=== PATIENT | male | born 1950 | race African-American/Black ===

== ENCOUNTER 2017-07-06 19:34 | Inpatient (IN) | payer MEDICARE, OTHER ==
[2017-07-06] MEDS: ALBUTEROL 0.083% (NEB) 2.5 MG/3 ML AMP HHN (21:06)
[2017-07-06] MEDS: IPRATROPIUM (NEB) 0.5 MG/2.5 ML AMP HHN (21:06)
[2017-07-06 21:17] LABS: ADD MAN DIFF? NO
[2017-07-06 21:20] LABS: AADO2 Arterial 139.5 mmHg (7.0-24.0); Arterial Base Excess 1.8 mmol/L (-3.0-3); Arterial Blood Gas Oxygen Sat 98.3 mmHG (95.0-98.0); Arterial COHb 0 % (0.0-3.0); Arterial HCO3 27.2 mmol/L (22.0-26.0); Arterial MetHb 0.3 % (0.0-1.5); Arterial Total Hemglobin 15.8 g/dl (12.0-18.0); MODE MASK - SIMPLE; Site Right Brachial
[2017-07-06] MEDS: CEFEPIME 2GM/50 ML (PMX) 50 ML IVPB (21:22)
[2017-07-06] MEDS: SODIUM CHLORIDE 0.9% 1L BAG IV* (21:23)
[2017-07-06 21:31] LABS: WHITE BLOOD COUNT 7.8 10^3/ul (4.8-10.8)
[2017-07-06 21:31] LABS: ABNORMAL IP MESSAGE 1; BASOPHIL # 0.1 10^3/ul (0.0-0.1); BASOPHILS % 0.6 % (0.0-2.0); EOSINOPHILS # 0.1 10^3/ul (0.0-0.5); EOSINOPHILS % 1.7 % (0.0-7.0); HEMOGLOBIN 15.4 g/dl (14.0-18.0); LYMPHOCYTES # 0.4 10^3/ul (0.8-2.9); LYMPHOCYTES % 5.1 % (15.0-51.0); MEAN CORPUSCULAR HEMOGLOBIN 30.6 pg (29.0-33.0); MEAN CORPUSCULAR HGB CONC 33.5 g/dl (32.0-37.0); MEAN CORPUSCULAR VOLUME 91.3 fl (82.0-101.0); MEAN PLATELET VOLUME 8.5 fl (7.4-10.4); MONOCYTE # 1.2 10^3/ul (0.3-0.9); NEUTROPHILS % 77.2 % (39.0-77.0); PLATELET COUNT 286 10^3/UL (140-415); POSITIVE DIFF @See below; RED BLOOD COUNT 5.04 10^6/ul (4.70-6.10); RED CELL DISTRIBUTION WIDTH 12.8 % (11.5-14.5)
[2017-07-06 21:55] LABS: INR 0.98; PROTIME 13.1 Sec (11.9-14.9)
[2017-07-06 21:56] LABS: PARTIAL THROMBOPLASTIN TIME 26.7 Sec (25.0-35.0)
[2017-07-06 22:03] LABS: LACTIC ACID 1.4 mmol/L (0.5-2.0)
[2017-07-06 22:04] LABS: ALANINE AMINOTRANSFERASE 98 IU/L (13-69); ALBUMIN 4.7 g/dl (3.3-4.9); ALBUMIN/GLOBULIN RATIO 1.34; ALKALINE PHOSPHATASE 85 IU/L (42-121); ANION GAP 18 (8-16); ASPARTATE AMINO TRANSFERASE 70 IU/L (15-46); BILIRUBIN,INDIRECT 0.2 mg/dl (0-1.1); BILIRUBIN,TOTAL 0.2 mg/dl (0.2-1.3); BLOOD UREA NITROGEN 9 mg/dl (7-20); CALCIUM 8.9 mg/dl (8.4-10.2); CARBON DIOXIDE 26 mmol/L (21-31); CHLORIDE 98 mmol/L (97-110); CREATININE 0.88 mg/dl (0.61-1.24); GLUCOSE 144 mg/dl (70-220); POTASSIUM 4.3 mmol/L (3.5-5.1); SODIUM 138 mmol/L (135-144); TOTAL PROTEIN 8.2 g/dl (6.1-8.1)
[2017-07-06 22:24] LABS: TROPONIN-I < 0.012 ng/ml (0.00-0.12)
[2017-07-06] MEDS: METHYLPREDNISOLONE 125 MG INJ IV (23:11)
[2017-07-06] MEDS: KETOROLAC 30 MG INJ IV ×2 (23:12)
[2017-07-06 23:17] LABS: LACTIC ACID 1.5 mmol/L (0.5-2.0)
[2017-07-07] MEDS: AZITHROMYCIN 250 MG TAB PO (00:50)
[2017-07-07] MEDS: ACETAMINOPHEN 325 MG TAB PO (00:50)
[2017-07-07] MEDS ORDERED: ONDANSETRON 4 MG INJ IV ×2 (01:00→04:30)
[2017-07-07] MEDS ORDERED: ACETAMINOPHEN 325 MG TAB PO ×2 (01:00→04:30)
[2017-07-07 01:19] LABS: ADD UMIC NO; UR ASCORBIC ACID 40 mg/dL (NEGATIVE); UR BILIRUBIN (Dip) NEGATIVE (NEGATIVE); UR BLOOD (Dip) NEGATIVE (NEGATIVE); UR CLARITY CLEAR (CLEAR); UR COLOR YELLOW (YELLOW); UR GLUCOSE (Dip) NEGATIVE (NEGATIVE); UR KETONES (Dip) NEGATIVE (NEGATIVE); UR LEUKOCYTE ESTERASE (Dip) NEGATIVE Leu/ul (NEGATIVE); UR NITRITE (Dip) NEGATIVE (NEGATIVE); UR SPECIFIC GRAVITY (Dip) 1.024 (1.003-1.030); UR TOTAL PROTEIN (Dip) NEGATIVE (NEGATIVE); UR UROBILINOGEN (Dip) 1+ mg/dL (NEGATIVE)
[2017-07-07 01:34] LABS: LACTIC ACID 1.4 mmol/L (0.5-2.0)
[2017-07-07] MEDS: ALBUTEROL 0.083% (NEB) 2.5 MG/3 ML AMP HHN (02:16)
[2017-07-07] MEDS: SOD CHLORIDE 0.9% 1,000 ML IV ×3 (04:04→22:27)
[2017-07-07] MEDS ORDERED: morphine 2 MG INJ IV (04:30)
[2017-07-07] MEDS ORDERED: NACL 0.9% 3 ML SYG IV (04:30)
[2017-07-07] MEDS: HEPARIN 5,000 UNIT/0.5 ML VIAL SC ×2 (08:42→22:36)
[2017-07-07] MEDS: METHYLPREDNISOLONE 125 MG INJ IV (08:45)
[2017-07-07] MEDS: SALMETEROL/FLUTICASONE 250/50 INHA INH ×2 (09:44→21:00)
[2017-07-07] MEDS: LEVOFLOXACIN 500MG/D5W (PMX) 100 ML IVPB (09:54)
[2017-07-07 10:01] LABS: HAAIG REFLEX REFLEX FILED
[2017-07-07] MEDS: ALBUTEROL/IPRATROPIUM (NEB) 3 ML AMP HHN ×4 (13:04→21:08)
[2017-07-07 18:10] LABS: HEPATITIS B SURFACE ANTIGEN NEGATIVE (NEGATIVE)
[2017-07-07 18:28] LABS: HEPATITIS B CORE ANTIBODY REACTIVE (NEGATIVE)
[2017-07-07 18:29] LABS: HEPATITIS C VIRAL ANTIBODY REACTIVE (NEGATIVE)
[2017-07-07] MEDS: METHYLPREDNISOLONE 40 MG INJ IV (22:26)
[2017-07-07] MEDS: MONTELUKAST 10 MG TAB PO (22:26)
[2017-07-07] MEDS: INFLUENZA VIRUS VACCINE 0.5 ML (DISPENSING) IM* (23:00)
[2017-07-08] MEDS: ALBUTEROL/IPRATROPIUM (NEB) 3 ML AMP HHN ×6 (00:08→20:11)
[2017-07-08] MEDS: SALMETEROL/FLUTICASONE 250/50 INHA INH ×3 (01:18→22:36)
[2017-07-08 06:22] LABS: ADD MAN DIFF? NO
[2017-07-08 06:32] LABS: WHITE BLOOD COUNT 10.4 10^3/ul (4.8-10.8)
[2017-07-08 06:32] LABS: BASOPHILS % 0.1 % (0.0-2.0); HEMATOCRIT 40.5 % (42.0-52.0); HEMOGLOBIN 13.6 g/dl (14.0-18.0); LYMPHOCYTES # 1.1 10^3/ul (0.8-2.9); LYMPHOCYTES % 10.3 % (15.0-51.0); MEAN CORPUSCULAR HEMOGLOBIN 31.3 pg (29.0-33.0); MEAN CORPUSCULAR HGB CONC 33.6 g/dl (32.0-37.0); MEAN CORPUSCULAR VOLUME 93.1 fl (82.0-101.0); MEAN PLATELET VOLUME 8.7 fl (7.4-10.4); MONOCYTE # 1.2 10^3/ul (0.3-0.9); MONOCYTES % 11.6 % (0.0-11.0); NEUTROPHIL # 8.1 10^3/ul (1.6-7.5); NEUTROPHILS % 77.6 % (39.0-77.0); PLATELET COUNT 254 10^3/UL (140-415); RED BLOOD COUNT 4.35 10^6/ul (4.70-6.10); RED CELL DISTRIBUTION WIDTH 13.2 % (11.5-14.5)
[2017-07-08 06:50] LABS: ALANINE AMINOTRANSFERASE 58 IU/L (13-69); ALBUMIN 3.3 g/dl (3.3-4.9); ALBUMIN/GLOBULIN RATIO 1.03; ALKALINE PHOSPHATASE 70 IU/L (42-121); ANION GAP 15 (8-16); ASPARTATE AMINO TRANSFERASE 40 IU/L (15-46); BLOOD UREA NITROGEN 16 mg/dl (7-20); CALCIUM 8.3 mg/dl (8.4-10.2); CARBON DIOXIDE 27 mmol/L (21-31); CHLORIDE 105 mmol/L (97-110); CREATININE 0.89 mg/dl (0.61-1.24); GLUCOSE 166 mg/dl (70-220); MAGNESIUM 1.8 mg/dl (1.7-2.5); PHOSPHORUS 3.6 mg/dl (2.5-4.9); POTASSIUM 4.7 mmol/L (3.5-5.1); SODIUM 142 mmol/L (135-144); TOTAL PROTEIN 6.5 g/dl (6.1-8.1)
[2017-07-08] MEDS: LEVOFLOXACIN 500MG/D5W (PMX) 100 ML IVPB (08:30)
[2017-07-08] MEDS: METHYLPREDNISOLONE 40 MG INJ IV ×2 (08:31→22:39)
[2017-07-08] MEDS: SOD CHLORIDE 0.9% 1,000 ML IV ×2 (08:31→20:55)
[2017-07-08] MEDS: HEPARIN 5,000 UNIT/0.5 ML VIAL SC ×2 (08:53→23:38)
[2017-07-08] MEDS: MONTELUKAST 10 MG TAB PO (22:35)
[2017-07-09] MEDS: ALBUTEROL/IPRATROPIUM (NEB) 3 ML AMP HHN ×4 (01:05→13:05)
[2017-07-09] MEDS: METHYLPREDNISOLONE 40 MG INJ IV (09:33)
[2017-07-09] MEDS: SALMETEROL/FLUTICASONE 250/50 INHA INH (09:35)
[2017-07-09] MEDS: LEVOFLOXACIN 500MG/D5W (PMX) 100 ML IVPB (09:36)
[2017-07-09] MEDS: HEPARIN 5,000 UNIT/0.5 ML VIAL SC (09:46)
== END 2017-07-09 14:10 | disposition home or self-care (01) | DRG 203 ==
LOC: MS2 07-07 04:07 → E/R 19:34
DX: J45.901 Unspecified asthma with (acute) exacerbation (principal)
CPT/HCPCS: 36415; 36600; 71045; 80053; 81003; 82803; 83605; 83735; 84100; 84484; 85025; 85610; 85730; 86704; 86709; 86803; 87040; 87086; 87340; 87400; 90686; 93005; 94640; 94644; 94664; 96372; 96374; 96375; 99291-25